=== PATIENT | female | born 1990 | race African-American/Black ===

== ENCOUNTER 2018-12-29 11:34 | Inpatient (IN) | payer OTHER ==
[~2018-12-29] VITALS: Ht 160 cm; Wt 66.6 kg
[2018-12-29] VITALS (7 sets, daily range): BP systolic 112–152; BP diastolic 71–98
[2018-12-29] MEDS ORDERED: PRENTAB9 PO (12:00)
[2018-12-29] MEDS ORDERED: PENICILLIN G POTASSIUM IV 5 MU in D5W MINI-BAG PLUS 100 ML IV STA (15:27)
[2018-12-29] MEDS ORDERED: miSOPROStol 50 MCG 1/2 TAB (S0191) PO ONE (15:45)
[2018-12-29] MEDS ORDERED: LACTATED RINGER'S 1000 ML IV ONE (15:45)
[2018-12-29 16:05] LABS: HEMATOCRIT 29.9 % (36.0-47.0); HEMOGLOBIN 9.5 g/dl (12.0-15.5); MEAN CORPUSCULAR HEMOGLOBIN 30.2 pg (27.0-33.0); MEAN CORPUSCULAR HGB CONC 31.8 g/dl (32.0-36.5); MEAN CORPUSCULAR VOLUME 94.9 fl (80.0-96.0); PLATELET COUNT, AUTOMATED 190 10^3/uL (150-450); RED BLOOD COUNT 3.15 10^6/uL (4.00-5.40); WHITE BLOOD COUNT 10.1 10^3/uL (4.0-10.0)
[2018-12-29] MEDS: LR 1,000 ML IV SCH (20:23)
[2018-12-29] MEDS: PENICILLIN G POTASSIUM IV 2.5 MU in APPROPRIATE DILUENT 1 EA IV SCH (20:23)
[2018-12-30] VITALS (42 sets, daily range): BP systolic 104–156; BP diastolic 62–96
--- NOTE | 2018-12-30 00:13 | NUR ---
1210 am review pre analgesics category 1 strip moderate variability adequate contractions afebrile pelvic exam 100% effaced 3-4 cm anterior -2 station well applied safe to proceed
[2018-12-30] MEDS: LR 1,000 ML IV SCH ×3 (01:15→23:33)
[2018-12-30] MEDS: PENICILLIN G POTASSIUM IV 2.5 MU in APPROPRIATE DILUENT 1 EA IV SCH ×4 (01:15→13:24)
[2018-12-30] MEDS ORDERED: PROMETHAZINE INJ 25 MG/ML VIAL (J2550) IV ONE ×2 (04:15)
[2018-12-30] MEDS ORDERED: BUTORPHANOL 2 MG/ML INJ (J0595) IV ONE ×2 (04:15)
[2018-12-30] MEDS ORDERED: OXYTOCIN 30 UNITS IN 0.9% NaCl 500ML IV BAG (J2590) As Ordered ONE (05:56)
--- NOTE | 2018-12-30 07:04 | NUR ---
0700 patient feeling pressure posterior 5-6 0 station clear liquor soft anterior lip starting to swell category 1 strip afebrile discussed epidural had 2 doses iv Meds no relief of pressure. Patient sitting on cervix involuntary pushing and patient agree
[2018-12-30] MEDS ORDERED: FENTANYL 2MCG/ML ROPIVACAINE 0.2% IN 0.9% NACL 100ML IVBAG As Ordered ONE (07:15)
[2018-12-30] MEDS ORDERED: NALOXONE INJ 0.4 MG/1 ML VIAL (J2310) IV PRN ×3 (08:00→17:22)
[2018-12-30] MEDS ORDERED: ePHEDrine SULFATE 25 MG/5 ML(5MG/ML) SYRINGE IV PRN (08:00)
[2018-12-30] MEDS ORDERED: LACTATED RINGER'S 1000 ML IV PRN (08:00)
[2018-12-30] MEDS ORDERED: REFRIGERATOR IV KEYS XX PRN (08:00)
[2018-12-30] MEDS ORDERED: FENTANYL/ROPIVACAINE/NACL BAG 100 ML EPIDURAL SCH (08:00)
[2018-12-30] MEDS ORDERED: diphenhydrAMINE INJ 50MG/ML VIAL (J1200) IV PRN ×2 (08:00→17:22)
[2018-12-30] MEDS ORDERED: EPIDURAL COMMENT XX SCH (08:00)
[2018-12-30] MEDS ORDERED: EPIDURAL/PCA KEYS XX PRN (08:00)
[2018-12-30] MEDS ORDERED: ONDANSETRON 4MG/2ML VIAL (J2405) IV PRN ×3 (08:00→18:15)
--- NOTE | 2018-12-30 10:51 | IPNPDOC ---
Text Note Date of Service The patient was seen on 12/30/18. NOTE SBAR from Dr Leon at 0730. PROM 630 yest, watched overnight making slow pro gary Now s/p epidural to good effect, tried to meet pt at ~0900, was sound asleep FHT Cat 2 with minimal to moderate variability, rare decel, pos accels, OK to cont Cx 8/100/0, vtx well applied Now >24 hrs ruptured but no S/S infection currently. Doing well, recheck in 1-2 hrs, sooner prn Sessions VS,Yash, I+O VSYash I+O Laboratory Tests 12/29/18 15:53 Red Blood Count 3.15 L, Mean Corpuscular Volume 94.9, Mean Corpuscular Hemoglobin 30.2, Mean Corpuscular Hemoglobin Concent 31.8 L, Red Cell Distribution Width 14.9 H Vital Signs Date Time Temp Pulse Resp B/P (MAP) Pulse Ox O2 Delivery O2 Flow Rate FiO2 12/30/18 06:43 98.7 80 20 135/87 (103) I&O- Last 24 Hours up to 6 AM 12/30/18 06:00 Intake Total 75 ml Balance 75 ml SESSIONS,NIC Knox MD Dec 30, 2018 10:51
--- NOTE | 2018-12-30 14:00 | IPNPDOC ---
Text Note Date of Service The patient was seen on 12/30/18. NOTE Just before 1300 Fully dilated/+2, adeq pelvis. Minimal variability and some lates noted with pushing/ctx's. Watching closely, will likely need epis/operative del or both. D/W R/B/I/A. Sessions VS,Yash, I+O VSYash I+O Laboratory Tests 12/29/18 15:53 Red Blood Count 3.15 L, Mean Corpuscular Volume 94.9, Mean Corpuscular Hemoglobin 30.2, Mean Corpuscular Hemoglobin Concent 31.8 L, Red Cell Distribution Width 14.9 H Vital Signs Date Time Temp Pulse Resp B/P (MAP) Pulse Ox O2 Delivery O2 Flow Rate FiO2 12/30/18 12:30 99.8 71 16 124/74 (91) I&O- Last 24 Hours up to 6 AM 12/30/18 06:00 Intake Total 75 ml Balance 75 ml SESSIONS,NIC Knox MD Dec 30, 2018 14:00
--- NOTE | 2018-12-30 15:21 | HPE ---
DATE OF ADMISSION: 12/29/2018 This lady is a 28-year-old 1, para 0, last menstrual period (LMP) 03/25/2018, estimated date of confinement (EDC) 12/30/2018 at 40 weeks of gestation with a history of spontaneous rupture of membranes at 0600 hours this morning, clear liquor. She call the obstetrics (OB) emergency line, and I spoke with the patient, asked her if she had any risk factors, and she said none, and suggested and recommended that she come in because of her spontaneous rupture of membranes at term. The patient did not show up until 11:49 in the morning, 6+ hours after spontaneous rupture of membranes. Denies any contractions, vaginal bleeding. Her risk factors are she has got anemia, and she is group B streptococcus (GBS) positive. Her laboratory work shows she is AB positive, HIV negative, hepatitis negative, rapid plasma reagin (RPR) negative, rubella immune, varicella immune, Pap normal. Gonorrhea and chlamydia are negative. Urine was contaminated. 1-hour glucose was 97. GBS was positive. Sickle cell was negative. On admission, she had come initially reluctantly, but at the request of her , for monitoring only; and her urine was 1000, pH was 6, +1 leukocytes, 2+ protein, and 250 blood. Her blood pressure is 119/82, respirations are 18, pulse was 73, and temperature is 99.2. On physical examination, she did not appear in any distress. Symphysis fundus height was appropriate for 40 weeks. Four-quadrant bowel sounds were noted. Category one strip with no contractions with moderate variability. The patient was asking questions regarding why we were checking her blood pressure, why we were monitoring her baby, and why does she need to have an examination of her cervix if she is not in labor. We explained to her that the examination of the cervix is because of her premature rupture of membranes, no labor, and the fact that she is GBS positive, and we need to confirm that she, in fact, has ruptured membranes. She agreed to the examination. The patient was placed in lithotomy position. I explained that the speculum sterile was placed in the vagina after sterile glove administration. The cervix was found to be posterior, was brought forward anteriorly. A pooling of amniotic fluid was noted. It was Nitrazine positive. Ferning was positive. BV was negative, and yeast was negative. We then removed the sterile speculum, digitally examined the patient, found her to be posterior 1 cm, about 50% effaced, and minus three station. The rest of the examination was unremarkable. She is normocephalic, atraumatic. Neck: Full range of motion. Pupils equal and reactive to light. Chest was clear bilaterally to bases. Lungs were clear. No wheezes or rhonchi. No costovertebral angle (CVA) tenderness. As mentioned, nontender uterus. Four-quadrant bowel sounds are noted. Category one strip. She had no rashes, lesions, or tattoos. No pruritus. No arthralgia or myalgia. No complaint of joint pain. No complaint of cough, wheezes, shortness of breath, or dyspnea on exertion. She has no issues with previous infections. Not bleeding. Neuro complete. No incontinence, urgency, or frequency. No nausea, vomiting, diarrhea, or constipation. No diabetic issues. Her past gynecological history is unremarkable. No sexually transmitted diseases (STDs) and normal Pap smear. PAST MEDICAL AND SURGICAL: Is unremarkable. FAMILY HISTORY: Is noncontributory. She does not smoke, drink, abuse drugs. She is to a soldier, and there is no domestic violence. We then had an ongoing discussion regarding the protocol for GBS positive, spontaneous rupture of membranes in that after an appropriate interval of nonintervention, if there is failure to have contractions that the appropriate management would be prophylaxis of antibiotics intravenous (IV) for the GBS on a every 4 hourly basis, monitoring of the baby, monitoring to make sure there is no temperature, and induction of labor. The patient felt that this was not what her care plan was. She wanted to have as natural childbirth as possible, and she wanted to go home with ruptured membranes. No contractions. GBS positive. We did again reiterate the fact that the protocol was to have GBS prophylaxis and induction of labor after a reasonable period of time an endpoint is reached, that induction of labor would be appropriate. We went through the methods of induction of labor including misoprostol, Pitocin, Lopez bulb catheter which was probably not appropriate with GBS positive; and the patient's requested that we give her antibiotics and send her home with the misoprostol, and they would come back when she is in labor. I explained to the patient and her that this was not the protocol or the procedure, that there are risks giving the patient antibiotics to take home, especially the fact that she needs antibiotics IV every 4 hours, and that an IV site would not be available every 4 hours if she came in and had to be restarted, and we do not give Cytotec on an outpatient basis for induction of labor, as there is no protocol for that; and the reason the protocols are in place are for proper management and having a good outcome in a patient who is GBS positive with no contractions. He immediately reiterated that were violating the patient's rights; and at this point, we went through the discussion of the risks and benefits again, the [employer] ([employer]OG) guidelines, the pediatric guidelines, and the hospital guidelines. We then printed out for them the information that is given to patients regarding GBS and the risks and benefits of prolonged rupture of membranes with GBS positive. He again mentioned that these were not helpful and did not answer any questions, again requesting to have his have antibiotics given and sent home also with misoprostol again. We reiterated that this was not a plan of care that was available here. He on his cell phone speaking with his sister who is a nurse that this was available in [place] and, of course, we are not in [place]. He then went ahead and expressed a wish to speak to the chief of the department or someone who is above my level in order to discuss the appropriate management of care in his estimation. I engaged Dr. Long to come and speak with the patient's , which he did so after reviewing the chart and reviewing the history, and he had a discussion with the regarding the appropriate management of GBS positive, spontaneous rupture of membranes, and no labor, and a fine line which needs to be established as to when active management of labor would be taken. We spent 3 hours in negotiations back and forth regarding this point. The was unwilling to move on this point as far as the fact that he suggested that we were denying his medical treatment for her condition. In fact, we were not. Again, we reiterated that IV antibiotics are appropriate in hospital, monitoring the baby, also temperature, white count, and induction of labor if after a reasonable period of time which is now ongoing almost 8 hours, there is no active labor pattern. He eventually agreed that he would allow his to proceed in the interim we had offered, that she could go home if she wished to sign out as against medical advice, suggested that she get herself a thermometer and take her temperature on an hourly or 2-hour basis, and if temperature is elevated, she has foul lochia, or decreased movement that she should come back immediately. Initially, they were going to go ahead and go home, but after discussion with Dr. Long, they elected to stay. At this time, we went over again the active management of labor, the IV prophylaxis of antibiotics every 4 hours, the intermittent monitoring, the use of Cytotec and/or Pitocin as necessary; and we briefly touched on pain management, however, the patient says she is not going to need anything for pain management. We talked about the process could possibly take up to 18 hours as we are starting from an unfavorable and right cervix to getting the cervix to ripen up in order for it actually to have adequate contractions for effacement and dilatation. After that discussion took place, we talked about the consent for vaginal delivery, which is delivery of the baby through the vagina, and possibly assistance of forceps or vacuum if needed for maternal or indications, forceps or vacuum device that can assist with vaginal delivery when normal pushing efforts cannot achieve delivery on their own or when deliveries needed in an emergency for baby's well-being. Medications may be required to induce or augment or help labor in order achieve a vaginal delivery. We discussed misoprostol for softening the cervix and the Pitocin for augmenting or enhancing contractions. An episiotomy may or may not be required until the baby deliver vaginally, and she may also require repair of any lacerations or tears of the vagina or the vulva that have been caused spontaneously by delivery. In some cases, emergencies can occur that require an emergency section delivery so quickly that there may be not enough time to stop for formal complete consent, however, we would discussed with her the reasons for section on an emergency basis before any procedure would take place, and section is delivery through the abdomen with an incision and is only used in extreme instances where continuing labor and mother would be clinically indicated as it may be detrimental to continue vaginal approach. The risks of vaginal delivery would include but not limited to bleeding, infection, injury to the vagina and pelvic structures, possible injury to baby, damage to the uterus, reaction to anesthesia, uterine rupture, and other life-threatening bleeding could occur. Medications again used to contract down the uterus would be Pitocin, and we have various other medications failing Pitocin. Also, the possibility at section remotely the laceration or need to be in the intensive care unit (NICU) because of sepsis, chorioamnionitis because of prolonged rupture of membranes, and GBS positive. The patient seemed to be quite upset about the details of what was going on as it did not meet her requirements as far as a natural childbirth. However, we were beyond that and needed to enact active management of labor. This was all reinforced by Dr. Long at the time. The then reiterated again that this was violating the patient's rights, and I would propose that this was interfering with the ongoing care of his baby and the safety of both the mother and the baby by objecting to what is considered a normal management pattern as per the protocols for the ACOG, SO, and the pediatric college. The patient was also concerned in the fact that in the centering class which she took, they told her that she could stay home as long as she wanted when her membranes were ruptured. They did not define out that ruptured membranes with GBS positive is in a different category than ruptured membranes with GBS negative. I had educated her in the fact that if she came in with ruptured membranes and was GBS negative and felt uncomfortable for implementing augmentation of labor that she could go home with a normal reactive category one strip and come back when she is having contractions 5-7 minutes apart, moderate intensity; but the issue here is the fact that she was GBS positive, prolonged rupture of membranes, and no labor puts her in a different category than a normal routine centering patient. At the end of our discussion and going onto now 4 hours, the patient expressed understanding and wished to stay. Initially, she had signed against medical advice (AMA) discharge but changed her mind and said she would stay. We then reviewed everything with her, and we are proceeding accordingly with prophylactic antibiotics, Cytotec, and monitoring. All questions were answered.
[2018-12-30] MEDS ORDERED: ceFAZolin 2 GM/D5W 50 ML IV BAG (J0690 PER 500MG) As Ordered ONE (16:11)
[2018-12-30] MEDS ORDERED: BICITRA 30ML SOLN UDC As Ordered ONE (16:11)
[2018-12-30] MEDS ORDERED: AZITHROMYCIN INJ 500MG VIAL (J0456) As Ordered ONE (16:12)
[2018-12-30] MEDS ORDERED: OXYTOCIN INJ 10 UNITS/ML VIAL (J2590) As Ordered ONE (16:15)
[2018-12-30] MEDS ORDERED: LIDOCAINE PRES-FREE 2% 10ML AMP As Ordered ONE ×2 (16:15→16:16)
[2018-12-30] MEDS: BICITRA 30ML SOLN UDC PO ONE ×2 (16:26→16:30)
[2018-12-30] MEDS ORDERED: AZITHROMYCIN INJ 500 MG, VIAL MATE ADAPTER 1 EACH in D5W 250 ML IV ONE (16:30)
--- NOTE | 2018-12-30 16:31 | IPNPDOC ---
Text Note Date of Service The patient was seen on 12/30/18. NOTE Now s/p 3 hrs pushing and signif molding present. Seemed like visual descent however vtx is still at +2. Very likely OP. I verbally obtained consent for a low vacuum, but unable to get any suction on the vtx X2, 2 different devices. As unable to get suction and any traction, recommended and consent obtained. OR team mobilizing. NST reassuring. Urgent not emergent. Sessions VS,Yash, I+O VSYash I+O Vital Signs Date Time Temp Pulse Resp B/P (MAP) Pulse Ox O2 Delivery O2 Flow Rate FiO2 12/30/18 12:30 99.8 71 16 124/74 (91) I&O- Last 24 Hours up to 6 AM 12/30/18 06:00 Intake Total 75 ml Balance 75 ml SESSIONS,NIC Knox MD Dec 30, 2018 16:31
[2018-12-30] MEDS ORDERED: ePHEDrine SULFATE 25 MG/5 ML(5MG/ML) SYRINGE As Ordered ONE (16:59)
[2018-12-30] MEDS ORDERED: ONDANSETRON 4MG/2ML VIAL (J2405) As Ordered ONE (16:59)
[2018-12-30] MEDS ORDERED: MORPHINE PRES-FREE INJ 10 MG/10 ML VIAL (J2274) As Ordered ONE (17:00)
[2018-12-30] MEDS ORDERED: KETOROLAC 60 MG/2 ML VIAL (J1885) As Ordered ONE (17:00)
[2018-12-30] MEDS ORDERED: dexameTHASONE 4 MG/ML 1ML VIAL (J1100) As Ordered ONE (17:00)
[2018-12-30] MEDS ORDERED: NALBUPHINE HCL 10 MG/ML AMP (J2300) IV PRN (17:22)
[2018-12-30] MEDS ORDERED: METOCLOPRAMIDE INJ 10MG/2ML VIAL (J2765) IV PRN ×2 (17:22→17:45)
[2018-12-30 17:23] LABS: CORD GAS ABE A -1.9; CORD GAS HCO3 A 25.7 MEQ/L; CORD GAS O2 SAT A 16.2 %; CORD GAS PCO2 A 55.4 mmHg; CORD GAS PH A 7.284 UNITS; CORD GAS PO2 A 13.1 mmHg; CORD GAS SBC A 20.9 MEQ/L; CORD GAS TCO2 A 27.4 MEQ/L
[2018-12-30 17:24] LABS: CORD GAS ABE V -3.8; CORD GAS HCO3 V 22.7 MEQ/L; CORD GAS O2 SAT V 30.9 %; CORD GAS PCO2 V 46.7 mmHg; CORD GAS PH V 7.305 UNITS; CORD GAS PO2 V 18.4 mmHg; CORD GAS SBC V 19.8 MEQ/L; CORD GAS TCO2 V 24.2 MEQ/L
[2018-12-30] MEDS ORDERED: OXYTOCIN DRIP 30 UNITS in APPROPRIATE DILUENT 1 EA IV SCH (17:44)
[2018-12-30] MEDS ORDERED: MEASLES,MUMPS,RUBELLA VACCINE INJ (MMR-II) (90707) SC SCH (17:45)
[2018-12-30] MEDS ORDERED: RHOGAM 300 MCG (1500 IU) INJ (J2790) IM SCH (17:45)
[2018-12-30] MEDS ORDERED: PERCOCET 5MG/325MG TAB PO PRN ×2 (17:45)
[2018-12-30] MEDS ORDERED: fentaNYL 100 MCG/2 ML INJECTION (J3010) IV PRN (18:15)
[2018-12-30] MEDS: DOCUSATE SODIUM 100 MG CAP PO SCH (21:03)
[2018-12-30] MEDS: KETOROLAC 30 MG/ML VIAL (J1885) IV SCH (23:34)
[2018-12-31 02:00] VITALS: BP 126/78
[2018-12-31] MEDS: KETOROLAC 30 MG/ML VIAL (J1885) IV SCH ×2 (05:31→12:49)
[2018-12-31 05:36] VITALS: BP 110/60
[2018-12-31 07:24] LABS: HEMOGLOBIN 7.6 g/dl (12.0-15.5); MEAN CORPUSCULAR HGB CONC 31.7 g/dl (32.0-36.5); MEAN CORPUSCULAR VOLUME 94.9 fl (80.0-96.0); PLATELET COUNT, AUTOMATED 194 10^3/uL (150-450); RED BLOOD COUNT 2.53 10^6/uL (4.00-5.40); WHITE BLOOD COUNT 16.3 10^3/uL (4.0-10.0)
[2018-12-31] MEDS: LR 1,000 ML IV SCH ×3 (07:26→21:00)
--- NOTE | 2018-12-31 07:29 | IPNPDOC ---
Text Note Date of Service The patient was seen on 12/31/18. NOTE POD1 PLTCS States feeling well, pain controlled with prescribed meds. Baby bonding and feeding well. No heavy VB. Lochia slowing. Ambulatory. Tolerating PO without issues. Lopez in place, UO adequate. VSSAF NAD A&O RRR CTAB LE no C/C/E Ut at U-2, [employer] with quarter sized blood stain on right aspect of bandage, no induration or fluctuance, no collection of fluid underneath CBC this AM pending a/p: Doing well. Cont routine postop care. D/C tomorrow likely. Sessions VSYash, I+O VSYash I+O Laboratory Tests 12/31/18 06:58 Red Blood Count 2.53 L, Mean Corpuscular Volume 94.9, Mean Corpuscular Hemog lobin 30.0, Mean Corpuscular Hemoglobin Concent 31.7 L, Red Cell Distribution Width 15.1 H Vital Signs Date Time Temp Pulse Resp B/P (MAP) Pulse Ox O2 Delivery O2 Flow Rate FiO2 12/31/18 05:36 99.0 69 17 110/60 (77) 12/31/18 02:00 97 I&O- Last 24 Hours up to 6 AM 12/31/18 05:59 Intake Total 6408 ml Output Total 3150 ml Balance 3258 ml NIC ELIAS MD Dec 31, 2018 07:29
[2018-12-31 10:00] VITALS: BP 104/61
[2018-12-31] MEDS: PRENATAL VITAMINS CHEWABLE TABLET PO SCH (10:09)
[2018-12-31] MEDS: DOCUSATE SODIUM 100 MG CAP PO SCH ×2 (10:09→20:15)
[2018-12-31 14:00] VITALS: BP 116/67
--- NOTE | 2018-12-31 15:55 | RO ---
DATE OF PROCEDURE: 12/29/2018 PREOPERATIVE DIAGNOSES: Arrest of descent after 3 hours pushing, unable to obtain a seal with a vacuum. POSTOPERATIVE DIAGNOSES: Arrest of descent after 3 hours pushing, unable to obtain a seal with a vacuum. PROCEDURE PERFORMED: Primary low transverse section. SURGEON: Dr. Andrea Armenta. PHYSIOTHERAPIST'S ASSISTANT: Rn Perinatal Kari Brasher was essential in assisting with retraction, delivery and closure of all tissue layers. ANESTHESIA: Epidural. ESTIMATED BLOOD LOSS: 500 mL. DRAINS: 400 mL of blood tinged urine in the Lopez catheter. FLUIDS: 1500 mL lactated Ringers. PREOP ANTIBIOTICS: Ancef 2 grams and azithromycin 500 mg. FINDINGS: Primary low transverse delivery low transverse uterine incision, clear fluid, male tightly wedged in the pelvis in straight occiput posterior position. Apgars 8 and 9, weighing 7 pounds 6 ounces or 3350 grams SPECIMENS: None. INDICATION: The patient was admitted the day prior for premature rupture of membranes and slowly after some delay at 6 cm, progressed to complete effacement and complete dilation with no augmentation. She pushed for 3 hours with regular contractions, had a reassuring heart tracing and never moved the passed +2 station. Molding definitely came down with her pushing efforts. However, the bony structures never came down past +2. It was recommended to do an operative vacuum delivery attempt with a low threshold for not continuing. I placed the kiwi vacuum in the appropriate midsagittal line with 1-2 cm from the posterior fontanelle but was unable to get a seal with the first device. I then tried a second device in case the first device was faulty and had the same findings. Unable to get a seal due to the presence of the caput. Therefore, my recommendation for immediate delivery was accepted by the patient and informed consent was obtained. All the risks, benefits, indications, alternatives were discussed. DESCRIPTION OF PROCEDURE: The patient was taken to the operating room with an IV in place and a Lopez catheter in place and placed in dorsal supine position with a leftward tilt and frogged legs in case I needed assistance from below from a nurse with a vaginal hand. She was prepped and draped in normal sterile fashion and the epidural was found to be adequate. A Pfannenstiel skin incision was carried down to the layer of fascia which was nicked in the midline and the fascial incision was extended the extent of the skin incision. We neck tented up the fascial edges and the underlying rectus muscles were dissected off superiorly and inferiorly. Rectus muscles were in the midline. I then entered the peritoneal cavity with my digit and a gentle stretching maneuver created an adequate peritoneal window. Bladder blade was placed. Bladder flap was created and a low transverse uterine incision was stretched to adequacy. The head was tightly which in the pelvis but I was able to insert my hand along the baby's forehead and slowly but surely disengage the tightly-wedged head, flexed the head and then with my partner's assistance from the fundus we were able to delivery the vigorous without difficulty. Cord was clamped times two and cut. The infant was handed off to waiting resuscitation team after showing the parents. Cord gases were obtained and were arterial pH 7.28, base excess 1.9 and venous pH 7.30, base excess of 3.8. Therefore normal. Delivered the placenta without difficulty using fundal massage and traction and wide open Pitocin going through the IV. We then delivered the uterus through the abdominal incision, wrapped it in a warm sponge and cleared all of the clots and debris from the intrauterine cavity with two dry sponges. We used ring forceps to grasp the lateral edges and the uterine edge of the vesicouterine junction and it was determined that we had bilateral extensions going down the apices of the incision, however, all very manageable. I then closed the incision from left to right with a running locked suture of 0 Vicryl ensuring hemostasis from the incision. We then closed the incision with 0 Monocryl to imbricate in an uncomplicated fashion from left to right. The mesosalpinx below the left tube had a [id number] rent which was then closed with #2-0 Vicryl in order to not allow space for potential bowel strangulation in the future. Hemostasis was noted from the uterine incision. Irrigation was performed behind the uterus and this was suctioned clear with a pool sucker. The uterus was placed in its anatomical position and the gutters bilaterally were cleared. One last look at the uterine incision confirmed hemostasis. Peritoneum was then closed with running #2-0 Vicryl and the fascia was closed after inspection of the rectus bellies to confirm hemostasis with 0 Vicryl from left to right. The subcutaneous tissue was copiously irrigated and made to be hemostatic and reapproximated with #2-0 Vicryl. Skin was closed with #4-0 Monocryl from left to right in a subcuticular fashion without difficulty. An Optifoam dressing was placed over the incision and the patient's legs were frogged and I did a bimanual exam expressing a small amount of clot and blood from the lower uterine segment, cervix and vagina. The uterus was firm at this time and the patient was cleaned up and transferred to the postanesthesia care unit (PACU) in stable condition. All counts throughout the procedure were correct including sponge, needle and instruments. HEAVENLY
[2018-12-31 18:00] VITALS: BP 115/84
[2018-12-31] MEDS: IBUPROFEN 800 MG TAB PO SCH (20:15)
[2018-12-31 22:05] VITALS: BP 114/72
[2019-01-01 02:28] VITALS: BP 128/66
[2019-01-01] MEDS: IBUPROFEN 800 MG TAB PO SCH ×2 (04:41→11:31)
[2019-01-01 06:35] VITALS: BP 135/64
[2019-01-01] MEDS: DOCUSATE SODIUM 100 MG CAP PO SCH (09:15)
[2019-01-01] MEDS: PRENATAL VITAMINS CHEWABLE TABLET PO SCH (09:15)
[2019-01-01 10:33] LABS: HEMATOCRIT 23.8 % (36.0-47.0); HEMOGLOBIN 7.6 g/dl (12.0-15.5); MEAN CORPUSCULAR HGB CONC 31.9 g/dl (32.0-36.5); MEAN CORPUSCULAR VOLUME 94.1 fl (80.0-96.0); PLATELET COUNT, AUTOMATED 239 10^3/uL (150-450); RED BLOOD COUNT 2.53 10^6/uL (4.00-5.40); WHITE BLOOD COUNT 12.1 10^3/uL (4.0-10.0)
--- NOTE | 2019-01-01 17:12 | IPNPDOC ---
Text Note Date of Service The patient was seen on 01/01/19. NOTE POD2 PLTCS, now ~48 hours States feeling well, pain controlled with prescribed meds. Baby bonding and feeding well. No heavy VB. Lochia slowing. Ambulatory. Tolerating PO without issues. Lopez out and voiding, UO adequate. VSSAF NAD A&O RRR CTAB LE no C/C/E Ut at U-2, [employer] with quarter sized blood stain on right aspect of bandage, old and not increased in size from yesterday AM CBC yesterday AM and this AM both stable a/p: Doing well. Cont routine postop care. D/C this evening. Sessions VSYash, I+O Yash REYNOSO I+O Laboratory Tests 01/01/19 10:16 Red Blood Count 2.53 L, Mean Corpuscular Volume 94.1, Mean Corpuscular Hemoglobin 30.0, Mean Corpuscular Hemoglobin Concent 31.9 L, Red Cell Distribut ion Width 15.1 H Vital Signs Date Time Temp Pulse Resp B/P (MAP) Pulse Ox O2 Delivery O2 Flow Rate FiO2 01/01/19 06:35 98.9 73 18 135/64 (87) 12/31/18 18:00 97 I&O- Last 24 Hours up to 6 AM 01/01/19 06:00 Intake Total 1000 ml Output Total 1200 ml Balance -200 ml SESSIONS,NIC Knox MD Jan 01, 2019 17:12
--- NOTE | 2019-01-01 17:26 | DS.PDOC ---
Discharge Summary General Date of Admission Dec 29, 2018 at 15:16 Date of Discharge [id number] Discharge Summary ADMITTING DIAGNOSES: PROM/eventual labor DISCHARGE DIAGNOSES: PLTCS for arrest of descent HOSPITAL COURSE: PROM, labor course a bit prolonged but progressed to C/C, never descended past +2 station despite 3 hours excellent pushing, and was straight OP. delivery uncomplicated. course uncomplicated. DISCHARGE MEDICATIONS: Motrin, Lanolin, Percocet, Nor, Colace DISCHARGE INSTRUCTIONS: Nothing in the vagina for 6 weeks. No driving for 2 weeks. No bathing for 4 weeks, shower only. F/U in OBGYN clinic in 1-2 weeks for incision check and routine follow-up in 6-8 weeks. Sessions Vital Signs/I&Os Vital Signs Date Time Temp Pulse Resp B/P (MAP) Pulse Ox O2 Delivery O2 Flow Rate FiO2 01/01/19 06:35 98.9 73 18 135/64 (87) 12/31/18 18:00 97 I&O- Last 24 Hours up to 6 AM 01/01/19 06:00 Intake Total 1000 ml Output Total 1200 ml Balance -200 ml Laboratory Data Labs 24H Laboratory Tests 2 01/01/19 10:16: Nucleated Red Blood Cells % (auto) 0.2H CBC/BMP Laboratory Tests 01/01/19 10:16 Red Blood Count 2.53 L, Mean Corpuscular Volume 94.1, Mean Corpuscular Hemoglobin 30.0, Mean Corpuscular Hemoglobin Concent 31.9 L, Red Cell Distribution Width 15.1 H Discharge Medications Scheduled Multivitamins/ ( 27-0.8 mg) 1 Tab Tab, 1 TAB PO DAILY, (Reported) Allergies Coded Allergies: No Known Drug Allergy (Verified Allergy, Unknown, 12/29/18) SESSIONS,NIC Knox MD Jan 01, 2019 17:26
[2019-01-01] MEDS ORDERED: COLA100C5 PO (17:41)
[2019-01-01] MEDS ORDERED: OXYC1TAB23 PO (17:41)
[2019-01-01] MEDS ORDERED: IBUP1TAB7 PO (17:41)
[2019-01-01 18:00] VITALS: BP 120/74
== END 2019-01-01 18:40 | disposition home or self-care (01) | DRG 773 ==
LOC: M LDO 11:34 → M LDI 15:16 → M OBS 12-30 19:20
PROVIDERS: ADMIT Obstetrics & Gynecology; ATTEND Obstetrics & Gynecology
PROC: 10D00Z1 Extraction of Products of Conception, Low, Open Approach (ICD-10-PCS; principal; 2018-12-29)
DX: O42.02 Full-term premature rupture of membranes, onset of labor within 24 hours of rupture (principal); Z37.0 Single live birth; Z3A.40 40 weeks gestation of pregnancy; O99.820 Streptococcus B carrier state complicating pregnancy; O32.4XX0 Maternal care for high head at term, not applicable or unspecified

== ENCOUNTER → 2020-02-09 | Outpatient (CLI) | payer OTHER ==
[~2020-02-09] VITALS: Ht 161.3 cm; Wt 63.2 kg
[~2020-02-09] MED LIST: COLA100C5 PO; IBUP1TAB7 PO; IRON SUCROSE 300 MG in NS 250 ML OVER 90 MIN. IV ONE; OXYC1TAB23 PO; PRENTAB9 PO
[2020-02-09 12:40] VITALS: BP 136/72
[2020-02-09 13:20] VITALS: BP 100/59
[2020-02-09 14:20] VITALS: BP 108/61
[2020-02-09 15:20] VITALS: BP 111/63
[2020-02-09 16:30] VITALS: BP 118/71
[2020-02-09 17:00] VITALS: BP 120/77
== END ==
LOC: M INFU 12:36
PROVIDERS: ATTEND Obstetrics & Gynecology
DX: O99.013 Anemia complicating pregnancy, third trimester (principal); D50.9 Iron deficiency anemia, unspecified; Z3A.35 35 weeks gestation of pregnancy
CPT/HCPCS: 96365; 96366; J1756

== ENCOUNTER → 2020-02-10 | Outpatient (CLI) | payer OTHER ==
[~2020-02-10] MED LIST changes: -IRON SUCROSE 300 MG in NS 250 ML OVER 90 MIN. IV ONE
--- NOTE | 2020-02-11 04:46 | REP ---
Clinical: Growth evaluation. Comparison: None . Findings: Examination demonstrates a single live intrauterine in cephalic presentation. motion is identified by technologist. Placenta is noted posterior fundal and grade I I I without evidence for placenta previa or abruption. Amniotic fluid volume is normal. Cervix appears closed. Nuchal cord cannot be excluded. Gestational age by LMP 36 weeks 4 days with LILI 03/05/2020 . Gestational age by current measurements 34 weeks 6-day with LILI 03/17/2020 . FHR equals 143 beats per minute. Estimated weight by current biometrical measurements 2540 grams ( 24th percentile based on age by LMP). Impression: Single live advanced gestation in cephalic presentation. Estimated weight within normal limits. Nuchal cord cannot be excluded. Grade III placenta without placenta previa. Electronically Signed by Shaheen Funez MD 02/11/2020 04:38 A
== END ==
LOC: M RAD 09:11
PROVIDERS: ATTEND Obstetrics & Gynecology
DX: Z36.4 Encounter for antenatal screening for fetal growth retardation (principal); Z3A.36 36 weeks gestation of pregnancy

== ENCOUNTER 2020-02-11 12:31 | Outpatient (CLI) | payer OTHER ==
[~2020-02-11] VITALS: Ht 161.3 cm; Wt 63.2 kg
[~2020-02-11 12:31] MED LIST changes: +IRON SUCROSE 300 MG in NS 250 ML OVER 90 MIN. IV ONE
[2020-02-11 12:35] VITALS: BP 127/78
[2020-02-11 13:15] VITALS: BP_SYST 108; BP_SYST 68; BP_DIAS 68; BP_DIAS 78
[2020-02-11 14:15] VITALS: BP 104/59
[2020-02-11 15:30] VITALS: BP 106/59
== END 2020-02-11 15:30 | disposition home or self-care (01) ==
LOC: M INFU 12:31
PROVIDERS: ATTEND Obstetrics & Gynecology
DX: D50.9 Iron deficiency anemia, unspecified (principal); Z3A.35 35 weeks gestation of pregnancy
CPT/HCPCS: 96365; 96366; J1756

== ENCOUNTER 2020-02-13 12:33 | Outpatient (CLI) | payer OTHER ==
[~2020-02-13] VITALS: Ht 161.3 cm; Wt 63.2 kg
[~2020-02-13 12:33] MED LIST changes: -IRON SUCROSE 300 MG in NS 250 ML OVER 90 MIN. IV ONE
[2020-02-13 12:35] VITALS: BP 122/80
[2020-02-13 13:30] VITALS: BP 104/56
[2020-02-13] MEDS ORDERED: IRON SUCROSE 300 MG in NS 250 ML OVER 90 MIN. IV ONE (13:30)
[2020-02-13 14:30] VITALS: BP 108/55
[2020-02-13 14:50] VITALS: BP 108/55
[2020-02-13 15:15] VITALS: BP 116/58
== END 2020-02-13 15:15 | disposition home or self-care (01) ==
LOC: M INFU 12:33
PROVIDERS: ATTEND Obstetrics & Gynecology
DX: O99.013 Anemia complicating pregnancy, third trimester (principal); D50.9 Iron deficiency anemia, unspecified; Z3A.35 35 weeks gestation of pregnancy
CPT/HCPCS: 96365; J1756

== ENCOUNTER 2020-02-27 05:10 | Inpatient (IN) | payer OTHER ==
[~2020-02-27] VITALS: Ht 160 cm; Wt 63.2 kg
[2020-02-27] VITALS (7 sets, daily range): BP systolic 114–136; BP diastolic 57–86
[~2020-02-27 05:10] MED LIST changes: +IRON325T9 PO; +VITA-243 PO
[2020-02-27 06:03] LABS: HEMATOCRIT 32.4 % (36.0-47.0); HEMOGLOBIN 10.2 g/dl (12.0-15.5); MEAN CORPUSCULAR HEMOGLOBIN 31.8 pg (27.0-33.0); MEAN CORPUSCULAR HGB CONC 31.5 g/dl (32.0-36.5); MEAN CORPUSCULAR VOLUME 100.9 fl (80.0-96.0); PLATELET COUNT, AUTOMATED 194 10^3/uL (150-450); RED BLOOD COUNT 3.21 10^6/uL (4.00-5.40); WHITE BLOOD COUNT 6.7 10^3/uL (4.0-10.0)
[2020-02-27] MEDS ORDERED: BICITRA 30ML SOLN UDC PO ONE ×2 (06:15→07:15)
[2020-02-27] MEDS ORDERED: CLINDAMYCIN 900 MG in IV 1 EA IV ONE (06:15)
[2020-02-27] MEDS ORDERED: ceFAZolin SOD 1 GM in D5W MINI-BAG PLUS 50 ML IV ONE (06:15)
[2020-02-27] MEDS ORDERED: LR 1,000 ML IV ONE (06:15)
[2020-02-27] MEDS: LR 1,000 ML IV SCH ×2 (06:30→12:18)
[2020-02-27] MEDS ORDERED: LACTATED RINGER'S 1000 ML IV STA (07:03)
[2020-02-27] MEDS ORDERED: LR 1,000 ML IV SCH ×2 (07:03→09:45)
[2020-02-27] MEDS ORDERED: D5W 1,000 ML IV SCH (07:03)
[2020-02-27] MEDS ORDERED: ceFAZolin SOD 2 GM in IV 1 EA IV ONE (07:15)
--- NOTE | 2020-02-27 07:25 | HPEPDOC ---
Obstetrical History & Physical General Date of Admission February 27, 2020 at 05:10 History of Present Illness patient is a 29 @ 39wks gestation with history of prior section desiring repeat. patient was counseled on TOLAC vs. repeat section in clinic. she continues to desire to have repeat section. patient without concerns today. Information Provided By: Patient Age: 29 : 2 Term: 1 Pre-term: 0 Abortions: 0 Livin Care Care: Good Care Dating Final EDC: March 05, 2020 Final EDC for Daily Update: March 05, 2020 Final EDC by: LMP Past Medical History Past Obstetrical History : Past Obstetrical History: Multigravida ( section x 1) HEAD NECK SURGEON History: No pertinent history Past Medical History Medical History G6PD Def Surgical History: section Family History Significant Family History: No pertinent family hx Social History Marital Status: Family situation: Spouse/partner home * Smoker: non-smoker Alcohol: Denies Drugs: denies Imunizations Tdap status: declined Influenza Status: current Allergies Coded Allergies: No Known Allergies (Unverified , 02/09/20) Medications Scheduled Ascorbic Acid (Vitamin C) 500 Mg Tablet, 500 MG PO BID No.137/Iron/Folic Acd ( Vitamin Tablet) 1 Tab Tab, 1 TAB PO DAILY Miscellaneous Medications Ferrous Sulfate (Iron) 325 Mg Tablet, 325 MG PO Physical Examination Physical Examination GENERAL: Alert and oriented times three. BREAST: . ABDOMEN: Gravid and non-tender to touch. hypertrophic pfannenstiel scar FETUS: fetus is vertex (VTX) by Tani. HEART RATE: Regular rate and rhythm. LUNGS: Clear to auscultation (CTA). EXTREMITIES: No edema/erythem/tendernes efw: 2800gm Vital Signs/I&O Vital Signs Date Time Temp Pulse Resp B/P (MAP) Pulse Ox O2 Delivery O2 Flow Rate FiO2 02/27/20 05:32 98.7 83 16 127/86 (100) Laboratory Data 24H LABS Laboratory Tests 2 02/27/20 05:28: Serology Scanned Report Hepatitis B Testing 02/27/20 05:55: Nucleated Red Blood Cells % (auto) 0.3H CBC/BMP Laboratory Tests 02/27/20 05:55 Pertinent Laboratoy Data Blood Type: AB+ RBC Antibody Screen: Negative HIV: Negative Hepatitis B: Negative Rapid Plasma Reagin: Nonreactive Rubella: Immune Chlamydia/Gonorrhea: Negative Group B Streptococcus: Negative Anatomy Ultrasound Placenta Location: Posterior Normal Anatomy: Yes Placenta Previa: No Assessment Heart Rate (FHR): 130 Variability: Moderate Accelerations: Positive Decelerations: None Tocometer Contractions: No Assessment/Plan Assessment patient is a 29 yo @ 39WKS admit for scheduled repeat section with scar revision. She is counseled regarding risks of delivery to include but not limited to, infection, bleeding requiring blood transfusion and associated risks, injuring to surrounding organs, hysterectomy, possible risks for take back, post op pain discussed with patient. Plan Admit and orient. Health Services Director and consent. Diet: NPO Group B Streptococcus (GBS) negative. ancef 2gm for prophy. back to OR once team ready DAISY COLVIN DO February 27, 2020 07:25
[2020-02-27] MEDS ORDERED: MORPHINE PRES-FREE INJ 10 MG/10 ML VIAL (J2274) As Ordered ONE (08:03)
[2020-02-27] MEDS ORDERED: METOCLOPRAMIDE INJ 10MG/2ML VIAL (J2765 PER 1) IV PRN ×2 (08:15→09:45)
[2020-02-27] MEDS ORDERED: NALBUPHINE HCL 10 MG/ML AMP (J2300) IV PRN (08:15)
[2020-02-27] MEDS ORDERED: NALOXONE INJ 0.4MG/1ML VIAL (J2310 PER 1MG) IV PRN ×2 (08:15)
[2020-02-27] MEDS ORDERED: ONDANSETRON 4MG/2ML VIAL IV PRN ×2 (08:15→09:45)
[2020-02-27] MEDS ORDERED: diphenhydrAMINE 50MG/ML VIAL (J1200) IV PRN ×2 (08:15→09:45)
[2020-02-27] MEDS ORDERED: ePHEDrine SULFATE 25 MG/5 ML(5MG/ML) SYRINGE As Ordered ONE (08:28)
[2020-02-27] MEDS ORDERED: OXYTOCIN 30 UNITS IN 0.9% NaCl 500ML IV BAG (J2590) As Ordered ONE (08:28)
[2020-02-27] MEDS ORDERED: PHENYLephrine HCL 500 MCG/5 ML (100MCG/ML) SYRINGE (J2370) As Ordered ONE (08:28)
[2020-02-27] MEDS ORDERED: KETOROLAC 60 MG/2 ML VIAL As Ordered ONE (08:46)
[2020-02-27] MEDS ORDERED: ONDANSETRON 4MG/2ML VIAL As Ordered ONE (08:46)
[2020-02-27] MEDS: PRENATAL VITAMINS CHEWABLE TABLET PO SCH (09:00)
[2020-02-27] MEDS ORDERED: OXYTOCIN DRIP 30 UNITS in IV 1 EA IV SCH (09:27)
[2020-02-27] MEDS ORDERED: RHOGAM 300 MCG (1500 IU) INJ (J2790) IM SCH (09:30)
[2020-02-27] MEDS ORDERED: ACETAMINOPHEN TAB 650MG DOSE (2X325MG) PO PRN (09:30)
[2020-02-27] MEDS ORDERED: MEASLES,MUMPS,RUBELLA VACCINE INJ (MMR-II) (90707) SC SCH (09:30)
[2020-02-27] MEDS ORDERED: fentaNYL 100 MCG/2 ML INJECTION (J3010) IV PRN (09:45)
[2020-02-27] MEDS ORDERED: PERCOCET 5MG/325MG TAB PO PRN (09:45)
[2020-02-27] MEDS: KETOROLAC 30 MG/ML 1ML VIAL IV SCH ×2 (14:30→20:38)
--- NOTE | 2020-02-27 16:35 | POST-OPPD ---
Postoperative Procedure Note Date Of Procedure: February 27, 2020 PREOPERATIVE DIAGNOSIS: Gravid at 39wks gestation History of prior section desiring repeat Hypertrophic incisional scar POSTOPERATIVE DIAGNOSIS: status post repeat low transverse delivery. FINDINGS: Viable , 9/9 PROCEDURE: Repeat low transverse section scar revision SURGEON: Daisy Pickett DO SEGMENTAL WALL INSTALLER: Micheal Daily CNM ANESTHESIA: Spinal SPECIMENS: none ESTIMATED BLOOD LOSS: 600cc REPLACED: 1000 cc LR DRAINS: 100cc urine Description of procedure: The risks, benefits, indications and alternatives to the procedure were reviewed with the patient and informed consent was obtained. Spinal anesthesia dosed for surgical analgesic. She was prepped and draped in the normal sterile fashion in the dorsal supine position with a leftward tilt. The abdomen was entered through pfannenstiel incision following prior incisional scar line. Sharp dissection performed down to fascia. Fascia layer entered sharply and bluntly from anterior abdominal muscle. Peritoneum entered sharply and . Lower uterine segment identified. Vesicopertonium identified. A Zamora uterine incision was made at the lower uterine segment. The uterine incision was extended superolaterally. Baby cephalic. Head delivered through hysterotomy, followed by anterior and posterior shoulder. Body followed with ease. The cord was clampedx2 and cut. The infant was handed off to awaiting pediatric team. Pitocin bolus started, the placenta delivered spontaneously. The uterus exteriorized. The uterus was cleared of all clots and debris. The uterine incision was repaired with O Chromic and imbricating layer using O monocryl. Hysterotomy incision inspected to be hemostatic. Normal appearing bilateral ovaries and right fallopian tube. Left fallopian tube adhered to anterior uterus at fimbria end. Gutter irrigated and suctioned. Uterus internalized. Hysterotomy site inspected to be hemostatic. The peritoneum, fascia and muscle bellies were inspected and noted to be hemostatic. Peritoneum approximated. The fascia approximated with O vicryl. The subcutaneous tissue closed with 3-0 vicryl. The skin was closed subcuticular using 4-0 monocryl. Dressing applied. The vagina was cleared of clots. Sponge, laps, needle and instruments count correct x 2. Patient taken to recovery room in stable condition. DO Nieves COMPLICATIONS: POSTOPERATIVE CONDITION: DAISY PICKETT DO February 27, 2020 16:35
--- NOTE | 2020-02-27 19:21 | DNPDOC ---
[facility] Delivery Note Delivery Note DATE OF DELIVERY: 02/27/2020 PREDELIVERY DIAGNOSIS: 39+0/7 weeks' gestation and labor. hypertrophic incisional scar POST DELIVERY DIAGNOSIS: Delivered. PROCEDURE: section scar revision EXTRUSION UTILITY WORKER: Dr. chino colvin DO ANESTHESIA: spinal ESTIMATED BLOOD LOSS: 600 mL. FINDINGS: 6 pound 4 ounce male infant, Score 9/9. DELIVERY SUMMARY: uncomplicated repeat primary section with scar revision. see operative notes for details. CHINO COLVIN DO February 27, 2020 09:34
[2020-02-28 01:55] VITALS: BP 119/77
[2020-02-28] MEDS: KETOROLAC 30 MG/ML 1ML VIAL IV SCH (02:48)
[2020-02-28 06:16] VITALS: BP 131/79
--- NOTE | 2020-02-28 07:55 | OBDS ---
[facility] Obstetrical Discharge Sum. Obstetrical Discharge Summary : 2 Term: 2 Pre-term: 0 Abortions: 0 Livin VDRL: Non-Reactive Rh: Positive Rubella: Immune Infant Sex: Male Weight: pounds (6), ounces (4) Anesthesia: Regional Anesthesia A/P, Post Course List any complications Admission diagnosis: Gravid at 39wks history of prior section hypertrophic scar Discharge diagnosis: Condition at Discharge: stable Discharge Instructions: Home Activity: as tolerated Diet: regular Medications: ibuprofen 800mg 1 tab po Q8hrs percocet 5/325 1-2 tab po q 6hrs prn pain Follow-up: 2 weeks Hospital course: Patient admitted for scheduled repeat low transverse section with scar revision. Surgery was uncomplicated. Patient discharged home on day #2. DAISY COLVIN DO February 28, 2020 07:55
[2020-02-28 08:23] LABS: HEMOGLOBIN 9.2 g/dl (12.0-15.5); MEAN CORPUSCULAR HEMOGLOBIN 32.2 pg (27.0-33.0); MEAN CORPUSCULAR HGB CONC 31.7 g/dl (32.0-36.5); MEAN CORPUSCULAR VOLUME 101.4 fl (80.0-96.0); PLATELET COUNT, AUTOMATED 172 10^3/uL (150-450); RED BLOOD COUNT 2.86 10^6/uL (4.00-5.40); WHITE BLOOD COUNT 7.6 10^3/uL (4.0-10.0)
--- NOTE | 2020-02-28 08:39 | IPNPDOC ---
Progress Note Date of Service: February 28, 2020 Day#: 2 Progress Note SUBJECT: Patient is a 29 yo s/p rltcd with scar revision PPD #1. Patient is a She has been ambulating, voiding spontaneously without issue and tolerating regular diet. Breast feeding without issue. Reports lochia is like a normal period. Patient desires to use norqd for contraceptive. OBJECTIVE: VITAL SIGNS: Within normal limits, afebrile. Alert and oriented times three. Abdomen: Fundus firm at U-2. Soft, appropriatly tender. dressing in place. le: no pricila/erythema/tenderness A/P patient is a ppd #1, doing well. discharge instructions given. routine post op care. dressing to stay on for 7 days . anticipate d/c tomorrow. Nieves, DO VS, I&O, 24H, Fishbone Vital Signs/I&O Vital Signs Date Time Temp Pulse Resp B/P (MAP) Pulse Ox O2 Delivery O2 Flow Rate FiO2 02/28/20 06:16 99.1 69 18 131/79 (96) 02/28/20 01:55 100 Room Air I&O- Last 24 Hours up to 6 AM 02/28/20 06:00 Intake Total 2020 ml Output Total 3500 ml Balance -1480 ml DAISY COLVIN DO February 28, 2020 08:39
[2020-02-28] MEDS: FERROUS SULFATE 325MG TAB PO SCH ×2 (09:37→20:53)
[2020-02-28] MEDS: PRENATAL VITAMINS CHEWABLE TABLET PO SCH (09:37)
[2020-02-28 10:00] VITALS: BP 108/63
[2020-02-28] MEDS: IBUPROFEN 800 MG TAB PO SCH ×2 (10:38→19:24)
[2020-02-28] MEDS: MIRALAX *UNIT DOSE* 17GM PACKET PO SCH ×2 (12:52→20:53)
[2020-02-28 14:00] VITALS: BP 125/76
[2020-02-28 18:00] VITALS: BP 122/72
[2020-02-28 23:38] VITALS: BP 126/63
[2020-02-29 02:03] VITALS: BP 122/69
[2020-02-29] MEDS: IBUPROFEN 800 MG TAB PO SCH ×2 (03:17→11:00)
[2020-02-29 06:11] VITALS: BP 139/85
[2020-02-29] MEDS: FERROUS SULFATE 325MG TAB PO SCH (08:25)
[2020-02-29] MEDS: PRENATAL VITAMINS CHEWABLE TABLET PO SCH (08:25)
[2020-02-29] MEDS: MIRALAX *UNIT DOSE* 17GM PACKET PO SCH (08:28)
--- NOTE | 2020-02-29 09:23 | IPNPDOC ---
Progress Note Date of Service: February 29, 2020 Day#: 2 Progress Note POD 2 SUBJECT: Barrett is a 29yo [id number] s/p RLTCS with scar revision, doing well day # 2. She has been ambulating, voiding spontaneously without issue and tolerating regular diet. Breast feeding without issue. Reports lochia is like a normal period. Has not yet ambulated much. Did have a bowel movement yesterday. No fevers/chills/nausea/vomiting/CP/SOB. Pain well controlled with medications. OBJECTIVE: VITAL SIGNS: Within normal limits, afebrile. Alert and oriented times three. Abdomen: Fundus firm at U-2. Soft, appropriately tender to palpation, some distention related to gas. Pfannensteil incision is covered by optifoam dressing which has a few areas of strikethrough. No obvious redness/swelling/drainage around the area. Extremities: no edema of BLE, no pain with palpation of calves Labs: pre-op H/H: 10.2/32.4 post-op H/H: 9.2/29 ASSESSMENT: Barrett is a 29yo [id number] s/p RLTCS with scar revision, doing well day # 2. Vitals within normal limits, afebrile, hemodynamically stable with no evidence of infection. PLAN: 1. Discharge to home today. 2. Percocet and Motrin for pain. 3. Encourage breast feeding and ambulation. 4. Regular diet 5. Vaginal rest, no heavy lifting x6 weeks. Keep incision clean and dry. Remove optifoam dressing in 1 week. 6. Discussed obtaining IS for patient to go home with, discussed with patient need to use IS regularly to prevent pneumonia and need to walk frequently to avoid DVT/PE 7. Scheduled visit in [address] Pickett 8. Discussed return precautions at length. Dr. Kiara Esparza MD VS, I&O, 24H, Fishbone Vital Signs/I&O Vital Signs Date Time Temp Pulse Resp B/P (MAP) Pulse Ox O2 Delivery O2 Flow Rate FiO2 02/29/20 06:11 98.9 14 75 139/85 (103) 02/28/20 23:38 98 Room Air Kiara Esparza MD February 29, 2020 09:23
[2020-02-29] MEDS ORDERED: IBUP80TA PO (09:25)
[2020-02-29] MEDS ORDERED: OXYC1TAB23 PO (09:25)
--- NOTE | 2020-02-29 09:28 | DS.PDOC ---
Discharge Summary General Date of Admission February 27, 2020 at 05:10 Date of Discharge February 29, 2020 Attending Physician: DAISY PICKETT DO Discharge Summary PROCEDURES PERFORMED DURING STAY: repeat low transverse section with scar revision ADMITTING DIAGNOSES: 1. Active labor with history of prior section at 39 weeks, hypertrophic scar DISCHARGE DIAGNOSES: 1. Same as above, delivered COMPLICATIONS/CHIEF COMPLAINT: History Of Prior Section. HISTORY OF PRESENT ILLNESS/HOSPITAL COURSE: Barrett is a 29yo [id number] s/p RLTCS with scar revision, doing well day # 2. She has had a benign course. At time of discharge, vitals were within normal limits, she was afebrile, hemodynamically stable with no evidence of infection. DISCHARGE MEDICATIONS: Please see below. ALLERGIES: Please see below. PHYSICAL EXAMINATION ON DISCHARGE: VITAL SIGNS: Within normal limits, afebrile. Alert and oriented times three. Abdomen: Fundus firm at U-2. Soft, appropriately tender to palpation, some distention related to gas. Pfannensteil incision is covered by optifoam dressing which has a few areas of strikethrough. No obvious redness/swelling/drainage around the area. Extremities: no edema of BLE, no pain with palpation of calves LABORATORY DATA: Please see below. Labs: pre-op H/H: 10./32.4 post-op H/H: . DISPOSITION: home DISCHARGE PLAN/INSTRUCTIONS: 1. Discharge to home today. 2. Percocet and Motrin for pain. 3. Encourage breast feeding and ambulation. 4. Regular diet 5. Vaginal rest, no heavy lifting x6 weeks. Keep incision clean and dry. Remove optifoam dressing in 1 week. 6. Discussed obtaining IS for patient to go home with, discussed with patient need to use IS regularly to prevent pneumonia and need to walk frequently to avoid DVT/PE 7. Scheduled visit in [address] Pickett 8. Discussed return precautions at length. DISCHARGE CONDITION: Stable TIME SPENT ON DISCHARGE: Greater than [address] Kiara Esparza MD Vital Signs/I&Os Vital Signs Date Time Temp Pulse Resp B/P (MAP) Pulse Ox O2 Delivery O2 Flow Rate FiO2 02/29/20 06:11 98.9 14 75 139/85 (103) 02/28/20 23:38 98 Room Air Discharge Medications Scheduled Ascorbic Acid (Vitamin C) 500 Mg Tablet, 500 MG PO BID, (Reported) Ibuprofen (Ibuprofen) 800 Mg Tablet, 800 MG PO Q8H No.137/Iron/Folic Acd ( Vitamin Tablet) 1 Tab Tab, 1 TAB PO DAILY, (Reported) Scheduled PRN Oxycodone HCl/Acetaminophen (Oxycodone-Acetaminophen 5-325) 1 Each Tablet, 1 TAB PO TIDP PRN for pain Miscellaneous Medications Ferrous Sulfate (Iron) 325 Mg Tablet, 325 MG PO, (Reported) Allergies Coded Allergies: No Known Allergies (Unverified , 02/09/20) Kiara Esparza MD February 29, 2020 09:28
== END 2020-02-29 15:14 | disposition home or self-care (01) | DRG 773 ==
LOC: M LDI 05:10 → M OBS 10:48
PROVIDERS: ADMIT Obstetrics & Gynecology; ATTEND Obstetrics & Gynecology
PROC: 10D00Z1 Extraction of Products of Conception, Low, Open Approach (ICD-10-PCS; principal; 2020-02-28)
PROC: 0HB7XZZ Excision of Abdomen Skin, External Approach (ICD-10-PCS; 2020-02-28)
DX: O34.211 Maternal care for low transverse scar from previous cesarean delivery (principal); Z37.0 Single live birth; Z3A.39 39 weeks gestation of pregnancy